=== PATIENT | female | born 1955 | race African-American/Black ===

== ENCOUNTER 2021-10-09 00:44 | Observation (INO) | payer MEDICARE ==
[2021-10-09 01:21] LABS: #Eosinphils 0.2 thou/uL (0.0-0.7); #Lymphocytes 3.1 thou/uL (1.20-3.40); #Monocytes 0.5 thou/uL (0.11-0.59); #Neutrophils 3.7 thou/uL (1.40-6.50); %Basophils 0.6 % (0.0-1.0); %Eosinophils 3.1 % (0.0-10.0); %Lymphocytes 41.4 % (21.0-51.0); %Monocytes 6.3 % (0.0-10.0); %Neutrophils 48.7 % (42.0-75.0); Hemoglobin 11.8 g/dL (12.0-16.0); Mean Corpuscular HGB CONC 34.1 g/dL (32.0-36.0); Mean Corpuscular Hemoglobin 33.1 pg (27.0-31.0); Mean Corpuscular Volume 97.2 fL (78.0-98.0); Platelet Count 175 thou/uL (130-400); Red Blood Cell (RBC) Count 3.55 mill/uL (4.20-5.40); White Blood Cell (WBC) Count 7.5 thou/uL (4.8-10.8)
[2021-10-09 01:42] LABS: ALT (SGPT) 15 U/L (8-55); AST (SGOT) 20 U/L (5-34); Albumin 4.2 g/dL (3.4-4.8); Alkaline Phosphatase 72 U/L (40-110); Anion Gap 13 mmol/L (10-20); BUN (Urea Nitrogen) 17 mg/dL (9.8-20.1); Bilirubin, Total 0.3 mg/dL (0.2-1.2); Calc. Creatinine Clearance 0 mL/min (70-130); Calcium 9.8 mg/dL (7.8-10.44); Carbon Dioxide 26 mmol/L (23-31); Chloride 104 mmol/L (98-107); Globulin 2.8 g/dL (2.4-3.5); Glucose 95 mg/dL (80-115); Sodium 139 mmol/L (136-145)
[2021-10-09 03:02] LABS: Thyroid Stimulating Hormone 49.4541 uIU/mL (0.35-4.94)
[2021-10-09 04:17] LABS: Free T4 (Free Thyroxine) Less than 0.40 ng/dL (0.70-1.48)
[2021-10-09 05:05] LABS: Troponin I Less than 0.010 ng/mL (< 0.028)
[2021-10-09 05:50] LABS: SARS-CoV-2 NAA Rapid Test Not Detected (NotDetected)
[2021-10-09] MEDS ORDERED: Acetaminophen 325 MG TAB PO PRN (07:07)
[2021-10-09] MEDS ORDERED: Ondansetron ODT 4 MG TAB PO PRN (07:07)
[2021-10-09 07:46] LABS: Magnesium 2.1 mg/dL (1.6-2.6)
[2021-10-09 07:52] LABS: Troponin I Less than 0.010 ng/mL (< 0.028)
[2021-10-09 10:56] LABS: Bilirubin Negative (Negative); Blood, Urine Trace (Negative); Clarity Clear (Clear); Glucose, Urine (Dipstick) Normal (Negative); Ketone, Urine Negative (Negative); Leukocyte 75 Leu/uL (Negative); Nitrite Negative (Negative); Protein, Urine (Dipstick) Negative (Neg-Trace); RBC/HPF 0-3 HPF (0-3); Specific Gravity, Urine 1.013 (1.002-1.036); Squamous Epithelial 0-3 HPF (0-3); Urobilinogen Normal mg/dL (Less than 2); WBC/HPF 0-3 HPF (0-3); pH, Urine 5.5 (5.0-9.0)
[2021-10-09 10:58] LABS: Bacteria/HPF 1+ HPF (None Seen)
[2021-10-09] MEDS ORDERED: Famotidine 20 MG TAB ONE (11:53)
[2021-10-09] MEDS ORDERED: Aspirin Chewable 81 MG TAB ONE (11:53)
[2021-10-09] MEDS: Famotidine 20 MG TAB PO SCH ×2 (12:03→21:05)
[2021-10-09] MEDS: Aspirin Chewable 81 MG TAB PO SCH (12:03)
[2021-10-09 13:26] VITALS: BMI 22.2
[2021-10-09] MEDS ORDERED: Levothyroxine Sodium 25 MCG TAB PO SCH (16:30)
[2021-10-09] MEDS ORDERED: Melatonin 3 MG TAB PO PRN (22:20)
[2021-10-10 05:26] LABS: #Eosinphils 0.2 thou/uL (0.0-0.7); #Lymphocytes 2.7 thou/uL (1.20-3.40); #Monocytes 0.4 thou/uL (0.11-0.59); #Neutrophils 2.5 thou/uL (1.40-6.50); %Basophils 0.5 % (0.0-1.0); %Eosinophils 3.1 % (0.0-10.0); %Lymphocytes 46.4 % (21.0-51.0); %Monocytes 7.1 % (0.0-10.0); Mean Corpuscular HGB CONC 33.4 g/dL (32.0-36.0); Mean Corpuscular Hemoglobin 32.2 pg (27.0-31.0); Mean Corpuscular Volume 96.4 fL (78.0-98.0); Mean Platelet Volume 6.9 fL (7.4-10.4); Platelet Count 175 thou/uL (130-400); RBC Distribution Width 12.8 % (11.5-14.5); Red Blood Cell (RBC) Count 3.42 mill/uL (4.20-5.40); White Blood Cell (WBC) Count 5.8 thou/uL (4.8-10.8)
[2021-10-10 05:39] LABS: Anion Gap 12 mmol/L (10-20); BUN (Urea Nitrogen) 15 mg/dL (9.8-20.1); Calc. Creatinine Clearance 44 mL/min (70-130); Calcium 9.2 mg/dL (7.8-10.44); Carbon Dioxide 25 mmol/L (23-31); Cardiac Risk 3.7 (Less than 4.5); Chloride 105 mmol/L (98-107); Cholesterol 242 mg/dl (< 200 Desired); Glucose 92 mg/dL (80-115); HDL Cholesterol 66 mg/dL (>60 Neg Risk); LDL Cholesterol, Calculated 157 mg/dL; Potassium 3.8 mmol/L (3.5-5.1); Sodium 138 mmol/L (136-145); Triglycerides 94 mg/dL (Less than 150)
[2021-10-10] MEDS ORDERED: Levothyroxine Sodium 25 MCG TAB PO SCH ×2 (06:00→07:09)
[2021-10-10] MEDS ORDERED: Sodium Chloride 0.9% 1,000 ML IV SCH ×3 (07:15→07:32)
[2021-10-10] MEDS: Aspirin Chewable 81 MG TAB PO SCH (08:37)
[2021-10-10] MEDS: Famotidine 20 MG TAB PO SCH (08:37)
[2021-10-10 09:00] LABS: Acetaminophen Less than 6.0 mcg/mL (10.0-30.0); Alcohol Less than 10 mg/dL (Less than 10); Salicylate Less than 8.0 mg/dL (15.0-30.0)
[2021-10-10] MEDS ORDERED: Multivitamin W/ Minerals 1 TAB PO SCH (09:00)
[2021-10-10 12:39] VITALS: BP 136/77; TEMP 98
[2021-10-10] MEDS ORDERED: Rosuvastatin 20 MG TAB PO SCH (21:00)
[2021-10-11] MEDS ORDERED: Levothyroxine Sodium 50 MCG TAB PO SCH (06:00)
[2021-10-11] MEDS ORDERED: Levothyroxine Sodium 100 MCG TAB PO SCH (06:00)
== END 2021-10-10 15:45 | disposition home or self-care (01) ==
LOC: ERS 00:44 → ERHOLD 02:50 → 2SW 13:16
PROVIDERS: ADMIT Internal Medicine; ATTEND Internal Medicine
DX: R55 Syncope and collapse (principal); R00.1 Bradycardia, unspecified; N17.9 Acute kidney failure, unspecified; E03.9 Hypothyroidism, unspecified; E78.5 Hyperlipidemia, unspecified; D64.9 Anemia, unspecified; F17.210 Nicotine dependence, cigarettes, uncomplicated; I11.9 Hypertensive heart disease without heart failure; I08.3 Combined rheumatic disorders of mitral, aortic and tricuspid valves; Z91.14 Patient's other noncompliance with medication regimen; Z79.899 Other long term (current) drug therapy; Z20.822 Contact with and (suspected) exposure to COVID-19
CPT/HCPCS: 71045; 80048; 80061; 80307; 81001; 82533; 83735; 84439; 84484 ×2; 85025; 87086; 93005 ×2; 93306; 97139 ×4; 99285; G0378 ×3; U0002; 36415; 80053; 84443; 93010; J7050

== ENCOUNTER 2022-06-17 15:00 | Emergency (ER) | payer MEDICARE ==
[2022-06-17 16:11] LABS: ALT (SGPT) 15 U/L (8-55); AST (SGOT) 24 U/L (5-34); Albumin 3.8 g/dL (3.4-4.8); Alkaline Phosphatase 99 U/L (40-110); Anion Gap 15 mmol/L (10-20); BUN (Urea Nitrogen) 15 mg/dL (9.8-20.1); Bilirubin, Total 0.4 mg/dL (0.2-1.2); Calc. Creatinine Clearance 0 mL/min (70-130); Calcium 8.8 mg/dL (7.8-10.44); Carbon Dioxide 23 mmol/L (23-31); Chloride 104 mmol/L (98-107); Estimated GFR 44; Glucose 115 mg/dL (80-115); Potassium 3.8 mmol/L (3.5-5.1); Protein, Total 6.8 g/dL (5.8-8.1); Sodium 138 mmol/L (136-145)
[2022-06-17] MEDS ORDERED: Ketorolac Tromethamine 30 MG/ML VIAL ONE (16:53)
[2022-06-17 16:56] LABS: Hemoglobin 10.9 g/dL (12.0-16.0); Mean Corpuscular HGB CONC 32.2 g/dL (32.0-36.0); Mean Corpuscular Hemoglobin 28.5 pg (27.0-31.0); Mean Corpuscular Volume 88.5 fL (78.0-98.0); Mean Platelet Volume 7.7 fL (7.4-10.4); Platelet Count 182 thou/uL (130-400); RBC Distribution Width 13.3 % (11.5-14.5); Red Blood Cell (RBC) Count 3.81 mill/uL (4.20-5.40); White Blood Cell (WBC) Count 5.8 thou/uL (4.8-10.8)
[2022-06-17 17:21] LABS: Band 13 % (5-11); Lymphocytes 12 % (21-51); MDiff Complete? YES; Monocytes 7 % (0-10); Neutrophil 68 % (42-75); Platelet Morphology Comment Appears Adequate; Polychromasia SLIGHT = 2-3 cells (100X) (0-2/hpf)
== END 2022-06-17 18:53 | disposition home or self-care (01) ==
LOC: ERS 15:00
DX: R55 Syncope and collapse (principal); M25.552 Pain in left hip; I10 Essential (primary) hypertension; E03.9 Hypothyroidism, unspecified; E78.5 Hyperlipidemia, unspecified; F17.210 Nicotine dependence, cigarettes, uncomplicated; Z79.899 Other long term (current) drug therapy
CPT/HCPCS: 36415; 70450; 72170; 80053; 84484; 85025; 93005; 94760; 96361; 96374; J1885

== ENCOUNTER 2023-05-19 10:09 | Outpatient (CLI) | payer OTHER | END 2023-05-19 10:10 | disposition home or self-care (01) | LOC: BICMAMMO 10:09 | PROVIDERS: ATTEND Family Medicine | DX: Z12.31 Encounter for screening mammogram for malignant neoplasm of breast (principal); Z80.3 Family history of malignant neoplasm of breast | CPT/HCPCS: 77063; 77067 ==